=== PATIENT | male | born 1990 | race American Indian/Alaskan Native ===

== ENCOUNTER 2017-08-16 20:37 | Emergency (ER) | payer OTHER ==
[~2017-08-16] VITALS: Ht 175.3 cm; Wt 99.8 kg
[~2017-08-16 20:37] MED LIST: AZITHROMYCIN500 MG PO; NORCO 5-325 TA1 EACH PO; PENICILLIN V P500 MG PO; PROVENTIL HFA6.7 GM INH; TYLENOL325 MG PO; VENTOLIN HFA18 GM INH; ZITHROMAX250 MG PO
== END 2017-08-16 23:00 | disposition home or self-care (01) ==
LOC: ED 20:37
DX: J11.1 Influenza due to unidentified influenza virus with other respiratory manifestations (principal); Z88.8 Allergy status to other drugs, medicaments and biological substances; Z88.6 Allergy status to analgesic agent
CPT/HCPCS: 96372; 99282; J0561

== ENCOUNTER 2017-09-16 09:36 | Emergency (ER) | payer OTHER, MEDICAID ==
[~2017-09-16] VITALS: Ht 175.3 cm; Wt 99.8 kg
[2017-09-16] MEDS ORDERED: VENTOLIN HFA18 GM INH (11:14)
== END 2017-09-16 11:26 | disposition home or self-care (01) ==
LOC: ED 09:36
DX: J45.909 Unspecified asthma, uncomplicated (principal); Z88.8 Allergy status to other drugs, medicaments and biological substances; Z88.6 Allergy status to analgesic agent
CPT/HCPCS: 71045; 80053; 83735; 84484; 85025; 94640; 99284

== ENCOUNTER 2017-11-19 13:21 | Emergency (ER) | payer OTHER, MEDICAID ==
[~2017-11-19] VITALS: Ht 175.3 cm; Wt 93.0 kg
[2017-11-19] MEDS ORDERED: IBUPROFEN200 MG NG (13:41)
[2017-11-19] MEDS ORDERED: PERCOCET 5-3251 EACH PO (18:27)
== END 2017-11-19 18:53 | disposition home or self-care (01) ==
LOC: ED 13:21
DX: S92.242A Displaced fracture of medial cuneiform of left foot, initial encounter for closed fracture (principal); S92.324A Nondisplaced fracture of second metatarsal bone, right foot, initial encounter for closed fracture; S29.012A Strain of muscle and tendon of back wall of thorax, initial encounter; S93.401A Sprain of unspecified ligament of right ankle, initial encounter; Z23 Encounter for immunization; Z88.8 Allergy status to other drugs, medicaments and biological substances; Z88.6 Allergy status to analgesic agent; Z79.51 Long term (current) use of inhaled steroids; W13.2XXA Fall from, out of or through roof, initial encounter
CPT/HCPCS: 70450; 72125; 72128; 72131; 73590; 73610; 73630; 73700; 80053; 81001; 85025; 90471; 90715; 96374; 96375; 99285; J2270; J2405; Q9967

== ENCOUNTER 2021-03-08 22:57 | Emergency (ER) | payer OTHER ==
[~2021-03-08] VITALS: Ht 175.3 cm; Wt 93.0 kg
[~2021-03-08 22:57] MED LIST changes: +AUGMENTIN 875-1 EACH PO; +IBUPROFEN200 MG NG; +PERCOCET 5-3251 EACH PO
[2021-03-08] MEDS ORDERED: VENTOLIN HFA18 GM INH (23:09)
[2021-03-09] MEDS ORDERED: LOTRIMIN AF12 GM TOP (00:15)
== END 2021-03-09 00:22 | disposition home or self-care (01) ==
LOC: ED 22:57
DX: R21 Rash and other nonspecific skin eruption (principal); Z88.8 Allergy status to other drugs, medicaments and biological substances
CPT/HCPCS: 99282

== ENCOUNTER 2021-05-03 14:55 | Emergency (ER) | payer OTHER ==
[~2021-05-03] VITALS: Ht 175.3 cm; Wt 94.6 kg
[~2021-05-03 14:55] MED LIST changes: +LOTRIMIN AF12 GM TOP
[2021-05-03] MEDS ORDERED: ONDANSETRON ODT4 MG PO (17:45)
== END 2021-05-03 18:06 | disposition home or self-care (01) ==
LOC: ED 14:55
DX: R11.10 Vomiting, unspecified (principal); R19.7 Diarrhea, unspecified; Z20.822 Contact with and (suspected) exposure to COVID-19; Z88.6 Allergy status to analgesic agent; Z88.8 Allergy status to other drugs, medicaments and biological substances
CPT/HCPCS: 80053; 85025; 96374; 99284-25; C9803; J2405; J7030; U0003

== ENCOUNTER 2022-02-01 16:02 | Emergency (ER) | payer OTHER ==
[~2022-02-01] VITALS: Ht 175.3 cm; Wt 106.9 kg
[~2022-02-01 16:02] MED LIST changes: +ONDANSETRON ODT4 MG PO
[2022-02-01] MEDS ORDERED: CRUTCHES XX (22:18)
== END 2022-02-01 22:32 | disposition home or self-care (01) ==
LOC: ED 16:02
DX: S83.92XA Sprain of unspecified site of left knee, initial encounter (principal); S79.922A Unspecified injury of left thigh, initial encounter; J45.909 Unspecified asthma, uncomplicated; W11.XXXA Fall on and from ladder, initial encounter; Z88.6 Allergy status to analgesic agent; Z88.8 Allergy status to other drugs, medicaments and biological substances
CPT/HCPCS: 73552; 73560